=== PATIENT | male | born 1940 | race Two or more races ===

== ENCOUNTER → 2020-11-07 | Outpatient (CLI) | payer OTHER | END | disposition home or self-care (01) | LOC: PPH VACUNA | PROVIDERS: ATTEND Emergency Medicine Pediatric Emergency Medicine | DX: Z23 Encounter for immunization (principal) ==

== ENCOUNTER 2021-07-03 10:21 | Outpatient (CLI) | payer OTHER | END 2021-07-03 10:26 | disposition home or self-care (01) | LOC: PPH VACUNA 10:21 | PROVIDERS: ATTEND Emergency Medicine Pediatric Emergency Medicine | DX: Z23 Encounter for immunization (principal) ==

== ENCOUNTER 2022-08-18 15:05 | Inpatient (IN) | payer OTHER ==
[~2022-08-18] VITALS: Ht 160 cm; Wt 45.4 kg
--- NOTE | 2022-08-18 15:22 | NUR ---
SE RECIBE PTE DESORIENTADO EN AMBULANCIA, PARAMEDICOS REFIEREN TRAER A PTE POR FALTA DE APETITO DESDE HACE ELISEO SEMANA. SE MIDEN S/V A PTE Y SE COLOCA EN [place].
[2022-08-18] MEDS ORDERED: LASIX20 MG (15:24)
[2022-08-18] MEDS ORDERED: PANTOPRAZOLE SO40 M2 (15:24)
[2022-08-18] MEDS ORDERED: ALDACTONE25 MG (15:25)
[2022-08-18] MEDS ORDERED: NEPHPLEX RX TA1 EACH (15:25)
[2022-08-18] MEDS ORDERED: TOLTERODINE TART4 MG (15:25)
[2022-08-18] MEDS ORDERED: INTEGRA CAPSUL1 EACH (15:25)
[2022-08-18] MEDS ORDERED: TAMS0.4C (15:25)
[2022-08-18] MEDS ORDERED: ATIVAN1 M1 (15:25)
[2022-08-18] MEDS ORDERED: KRISTALOSE20 GM (15:25)
[2022-08-18] MEDS ORDERED: FINASTERIDE5 MG (15:25)
[2022-08-18] MEDS ORDERED: B12 ACTIVE1000 MCG (15:25)
[2022-08-18] MEDS ORDERED: BUMETANIDE1 MG (15:26)
--- NOTE | 2022-08-18 17:11 | NUR ---
SE MIREYA MUESTRAS DE LABORATORIO UTILZIANDO MEDDIAS ASEPTICAS. SE COLOCA H/ LA PTE Y SE COLOCA IV FLUIDS. SE NOTIFICA ESTUDIO DE CT PENDIENTE A REALIZAR.
--- NOTE | 2022-08-19 01:20 | NUR ---
PACIENTE ALERTA Y DESORIENTADO X3. EN [place] CON BARANDAS ELEVADAS Y ACOMPANADO POR FAMILIAR. SE ORIENTA A FAMILIAR SOBRE TX A RECIBIR Y REFIRIO ENTENDER. SE ADMINISTRA MEDICAMENTOS ORDENADOS POR MD. SE OFRECE CAMBIO DE PANAL, EVACUACION PASTOSA COLOR CHARLIE JING. SE MANTIENE BAJO OBSERVACION POR CAMBIOS SIGNIFICATIVOS.
--- NOTE | 2022-08-19 04:10 | NUR ---
SE REALIZA CANALIZACION BAJO MEDIDAS ASEPTICAS EN MANO DERECHA, AREA PATENTE Y GREG DE EDEMA Y ERITEMA. SE OFRECE CAMBIO DE PANAL.
--- NOTE | 2022-08-19 07:18 | NUR ---
SE RECIBE PTE MASCULINO DE 81 YRS ALERTA CONCIENTE Y TRANQQUILO EN [place] CON BARANDAS ELEVADA. PTE SE MANTIENE AL MOMENTO GREG DE DOLOR. SE OBSERVA CON IVF'S PATENTE Y CONSULTADO CON EL CARINA ALDRIDGE.
== END 2022-08-25 23:30 | disposition home or self-care (01) | DRG 432 ==
LOC: ER 15:05 → MEDI 08-19 11:03 → SEC-K 08-19 11:03 → MEDI 08-19 15:47
PROVIDERS: ADMIT Specialist; ATTEND Specialist
DX: K70.30 Alcoholic cirrhosis of liver without ascites (principal); K65.2 Spontaneous bacterial peritonitis; K76.7 Hepatorenal syndrome; E72.20 Disorder of urea cycle metabolism, unspecified; G93.49 Other encephalopathy; E87.0 Hyperosmolality and hypernatremia; K76.82 Hepatic encephalopathy; E87.6 Hypokalemia; D63.8 Anemia in other chronic diseases classified elsewhere; N30.81 Other cystitis with hematuria; Z66 Do not resuscitate; C67.9 Malignant neoplasm of bladder, unspecified

== ENCOUNTER 2022-09-03 14:43 | Inpatient (IN) | payer OTHER ==
[~2022-09-03] VITALS: Ht 165.1 cm; Wt 53.1 kg
[~2022-09-03 14:43] MED LIST: ALDACTONE25 MG; ATIVAN1 M1; B12 ACTIVE1000 MCG; BUMETANIDE1 MG; FINASTERIDE5 MG; INTEGRA CAPSUL1 EACH; KRISTALOSE20 GM; LASIX20 MG; NEPHPLEX RX TA1 EACH; PANTOPRAZOLE SO40 M2; TAMS0.4C; TOLTERODINE TART4 MG
[2022-09-07] MEDS ORDERED: INTEGRA PLUS C1 EACH (11:35)
[2022-09-07] MEDS ORDERED: POTASSIUM CHLO20 MEQ (11:35)
[2022-09-07] MEDS ORDERED: FAMOTIDINE20 MG (11:35)
[2022-09-12] MEDS ORDERED: PANTOPRAZOLE SO40 MG PO (12:58)
[2022-09-12] MEDS ORDERED: FINASTERIDE5 MG PO (12:58)
[2022-09-12] MEDS ORDERED: INTEGRA PLUS C1 EACH PO (12:58)
[2022-09-12] MEDS ORDERED: TAMS0.4C PO (12:58)
[2022-09-12] MEDS ORDERED: ALDACTONE25 MG PO (12:58)
[2022-09-12] MEDS ORDERED: LACTULOSE10 GM/152 PO (12:58)
[2022-09-12] MEDS ORDERED: LASIX20 MG PO (12:58)
[2022-09-12] MEDS ORDERED: PROTEINEX-18 LI30 ML PO (12:58)
== END 2022-09-12 14:54 | disposition home or self-care (01) | DRG 442 ==
LOC: ER 14:43 → SURH 20:55
PROVIDERS: ADMIT Specialist; ATTEND Specialist
PROC: BW21YZZ Computerized Tomography (CT Scan) of Abdomen and Pelvis using Other Contrast (ICD-10-PCS; 2022-09-03)
PROC: 02HV33Z Insertion of Infusion Device into Superior Vena Cava, Percutaneous Approach (ICD-10-PCS; 2022-09-08)
PROC: 0W9G3ZX Drainage of Peritoneal Cavity, Percutaneous Approach, Diagnostic (ICD-10-PCS; principal; 2022-09-09)
PROC: 30233N1 Transfusion of Nonautologous Red Blood Cells into Peripheral Vein, Percutaneous Approach (ICD-10-PCS; 2022-09-09)
DX: K76.82 Hepatic encephalopathy (principal); D61.818 Other pancytopenia; E72.20 Disorder of urea cycle metabolism, unspecified; N17.8 Other acute kidney failure; N39.0 Urinary tract infection, site not specified; K70.31 Alcoholic cirrhosis of liver with ascites; C61 Malignant neoplasm of prostate; E86.0 Dehydration; E87.8 Other disorders of electrolyte and fluid balance, not elsewhere classified; B96.20 Unspecified Escherichia coli [E. coli] as the cause of diseases classified elsewhere; F10.20 Alcohol dependence, uncomplicated; N30.81 Other cystitis with hematuria; I12.9 Hypertensive chronic kidney disease with stage 1 through stage 4 chronic kidney disease, or unspecified chronic kidney disease; N18.9 Chronic kidney disease, unspecified; D63.1 Anemia in chronic kidney disease; R41.82 Altered mental status, unspecified

== ENCOUNTER 2022-10-07 14:51 | Inpatient (IN) | payer OTHER ==
[~2022-10-07] VITALS: Ht 147.3 cm; Wt 50.8 kg
[~2022-10-07 14:51] MED LIST changes: +ALDACTONE25 MG PO; +FAMOTIDINE20 MG; +FINASTERIDE5 MG PO; +INTEGRA PLUS C1 EACH; +INTEGRA PLUS C1 EACH PO; +LACTULOSE10 GM/152 PO; +LASIX20 MG PO; +PANTOPRAZOLE SO40 MG PO; +POTASSIUM CHLO20 MEQ; +PROTEINEX-18 LI30 ML PO; +TAMS0.4C PO
[2022-10-20] MEDS ORDERED: INTEGRA F CAPS1 EACH PO ×2 (13:34)
[2022-10-20] MEDS ORDERED: SPIRONOLACTONE25 MG PO ×2 (13:35)
[2022-10-20] MEDS ORDERED: MICRO-K 1010 MEQ PO ×2 (13:37)
[2022-10-20] MEDS ORDERED: LACTULOSE10 GM/152 PO ×2 (13:37)
[2022-10-20] MEDS ORDERED: PANTOPRAZOLE SO40 MG PO ×2 (13:38)
[2022-10-20] MEDS ORDERED: PROTEINEX-18 LI30 ML NGT ×2 (13:39)
[2022-10-20] MEDS ORDERED: LASIX20 MG PO ×2 (13:44)
[2022-10-20] MEDS ORDERED: TAMS0.4C PO ×2 (13:44)
[2022-10-20] MEDS ORDERED: PROTEINEX-18 LI30 ML PO ×2 (13:44)
[2022-10-20] MEDS ORDERED: FINASTERIDE5 MG PO ×2 (13:44)
== END 2022-10-20 19:37 | disposition home or self-care (01) | DRG 433 ==
LOC: ER 14:51 → MEDI 21:11 → SEC-K 21:11 → MEDI 10-08 18:07
PROVIDERS: ADMIT Internal Medicine; ATTEND Internal Medicine
PROC: BW28ZZZ Computerized Tomography (CT Scan) of Head (ICD-10-PCS; 2022-10-07)
PROC: BW21ZZZ Computerized Tomography (CT Scan) of Abdomen and Pelvis (ICD-10-PCS; 2022-10-07)
PROC: BB24ZZZ Computerized Tomography (CT Scan) of Bilateral Lungs (ICD-10-PCS; 2022-10-09)
PROC: 02HV33Z Insertion of Infusion Device into Superior Vena Cava, Percutaneous Approach (ICD-10-PCS; 2022-10-11)
PROC: 30233R1 Transfusion of Nonautologous Platelets into Peripheral Vein, Percutaneous Approach (ICD-10-PCS; 2022-10-11)
PROC: 0W9G3ZZ Drainage of Peritoneal Cavity, Percutaneous Approach (ICD-10-PCS; principal; 2022-10-13)
PROC: 30233N1 Transfusion of Nonautologous Red Blood Cells into Peripheral Vein, Percutaneous Approach (ICD-10-PCS; 2022-10-14)
DX: K70.31 Alcoholic cirrhosis of liver with ascites (principal); D61.818 Other pancytopenia; E72.20 Disorder of urea cycle metabolism, unspecified; N17.8 Other acute kidney failure; N39.0 Urinary tract infection, site not specified; R78.81 Bacteremia; K76.82 Hepatic encephalopathy; R74.01 Elevation of levels of liver transaminase levels; D69.59 Other secondary thrombocytopenia; N18.9 Chronic kidney disease, unspecified; B96.29 Other Escherichia coli [E. coli] as the cause of diseases classified elsewhere; C61 Malignant neoplasm of prostate; D64.89 Other specified anemias; Z20.822 Contact with and (suspected) exposure to COVID-19

== ENCOUNTER 2022-10-22 21:38 | Emergency (ER) | payer OTHER ==
[~2022-10-22] VITALS: Ht 170.2 cm; Wt 76.2 kg
[~2022-10-22 21:38] MED LIST changes: +INTEGRA F CAPS1 EACH PO; +MICRO-K 1010 MEQ PO; +PROTEINEX-18 LI30 ML NGT; +SPIRONOLACTONE25 MG PO
== END 2022-10-23 05:59 | disposition home or self-care (01) ==
LOC: ER 21:38
DX: D69.6 Thrombocytopenia, unspecified (principal); Z85.46 Personal history of malignant neoplasm of prostate; Z85.51 Personal history of malignant neoplasm of bladder; N18.9 Chronic kidney disease, unspecified; K70.31 Alcoholic cirrhosis of liver with ascites

== ENCOUNTER 2022-10-29 13:25 | Inpatient (IN) | payer OTHER ==
[~2022-10-29] VITALS: Ht 162.6 cm; Wt 68.0 kg
[2022-11-01] MEDS ORDERED: CIPROFLOXACIN250 MG (09:03)
[2022-11-01] MEDS ORDERED: INTEGRA PLUS C1 EAC1 (09:04)
== END 2022-11-24 13:24 | disposition expired | DRG 207 ==
LOC: ER 13:25 → ICU 20:13 → ICU-2 20:13 → ICU 10-31 19:11 → SURH 11-01 18:15 → ICU 11-05 21:31 → SURH 11-05 22:33
PROVIDERS: ADMIT Internal Medicine; ATTEND Internal Medicine
PROC: 5A1955Z Respiratory Ventilation, Greater than 96 Consecutive Hours (ICD-10-PCS; principal; 2022-10-29)
PROC: 0BH17EZ Insertion of Endotracheal Airway into Trachea, Via Natural or Artificial Opening (ICD-10-PCS; 2022-10-29)
PROC: 05HY33Z Insertion of Infusion Device into Upper Vein, Percutaneous Approach (ICD-10-PCS; 2022-10-30)
PROC: 30243R1 Transfusion of Nonautologous Platelets into Central Vein, Percutaneous Approach (ICD-10-PCS; 2022-10-31)
PROC: 30243N1 Transfusion of Nonautologous Red Blood Cells into Central Vein, Percutaneous Approach (ICD-10-PCS; 2022-11-01)
PROC: 8E0ZXY6 Isolation (ICD-10-PCS; 2022-11-01)
PROC: B54DZZZ Ultrasonography of Bilateral Lower Extremity Veins (ICD-10-PCS; 2022-11-01)
PROC: 4A12X4Z Monitoring of Cardiac Electrical Activity, External Approach (ICD-10-PCS; 2022-11-06)
PROC: 0W9G3ZZ Drainage of Peritoneal Cavity, Percutaneous Approach (ICD-10-PCS; 2022-11-15)
PROC: 0HD6XZZ Extraction of Back Skin, External Approach (ICD-10-PCS; 2022-11-19)
DX: J96.01 Acute respiratory failure with hypoxia (principal); J15.6 Pneumonia due to other Gram-negative bacteria; K76.7 Hepatorenal syndrome; J69.0 Pneumonitis due to inhalation of food and vomit; N17.9 Acute kidney failure, unspecified; G93.40 Encephalopathy, unspecified; E87.3 Alkalosis; R64 Cachexia; K70.31 Alcoholic cirrhosis of liver with ascites; K72.10 Chronic hepatic failure without coma; K76.82 Hepatic encephalopathy; B37.9 Candidiasis, unspecified; B96.89 Other specified bacterial agents as the cause of diseases classified elsewhere; D64.9 Anemia, unspecified; D69.59 Other secondary thrombocytopenia; L89.202 Pressure ulcer of unspecified hip, stage 2; Z74.01 Bed confinement status; Z85.46 Personal history of malignant neoplasm of prostate